=== PATIENT | male | born 1950 | race Caucasian/White ===

== ENCOUNTER → 2016-05-10 | Day surgery (SDC) | payer MEDICARE ==
[~2016-05-10] MED LIST: Buffered Lidocaine 1% SYR 3ML* 3 ML/SYR SYRINGE INTRADERM ONE; Buffered Lidocaine 1% SYR 3ML* 3 ML/SYR SYRINGE ONE; Clindamycin 900 MG IVPREMIX(* 900 MG/50 ML SDV IV ONE; Dexamethasone IV* 4 MG/ML 1 ML (4 MG) ONE; Famotidine IV* 10 MG/ML 2 ML (20 mg) IV ONE; Famotidine IV* 10 MG/ML 2 ML (20 mg) ONE; HYDROmorphone INJ* 1 MG/ML CARPUJECT SYRINGE IV PRN; KETAMINE HCL* 50 MG/ML 10 ML VIAL ONE; Ketorolac INJ* 30 MG/ML 1 ML VIAL ONE; Lidocaine 2% MPF* 2 ML VIAL ONE; Lidocaine 2% PF* 10 ML AMP ONE; Metoclopramide TAB* 10 MG ONE; Metoclopramide TAB* 10 MG PO ONE; Midazolam* 1 MG/ML 5 ML VIAL (5 MG) ONE; Ondansetron INJ* 2 MG/ML VIAL IV PRN; Ondansetron INJ* 2 MG/ML VIAL ONE; Propofol* 10 MG/ML 20 ML BTL IV PUSH ONE; fentaNYL* 50 MCG/ML 2 ML VIAL (100 MCG VIAL) IV PRN; fentaNYL* 50 MCG/ML 2 ML VIAL (100 MCG VIAL) ONE; oxyCODONE/Acetamin 5/325 MG* TAB PO PRN
[2016-05-10 12:37] VITALS: BP 139/101
--- NOTE | 2016-05-10 21:08 | OP ---
DATE OF OPERATION: 05/10/16 [facility] DATE OF : 48 SURGEON: Tj Gale MD CLIENT SERVICES ASSOCIATE: MALGORZATA Bearden ANESTHESIOLOGIST: Ritesh Mejia MD ANESTHESIA: MAC PRE-OP DIAGNOSIS: Recurrent ulceration, left first MTP joint dorsum and large dorsal osteophytes. 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 OPERATIVE PROCEDURE: Cheilectomy, left first MTP joint and debridement. DESCRIPTION OF PROCEDURE: The patient was taken to the operating room where I made a longitudinal incision directly over the dorsum of the first MTP joint through the previous ulcer which now had dried out. Medial flap and lateral flap raised to allow complete visualization of the dorsal aspect of the joint. Large osteophytes were removed completely smoothing down the dorsal phalanx and metatarsal areas. Local cultures were sent. We irrigated this area thoroughly closing the soft tissues with some Biosyn sutures and nylon for the skin. Compression dressing applied. [id number] #: [id number] MTDD
== END | disposition home or self-care (01) ==
LOC: OR 08:43
PROVIDERS: ATTEND Orthopaedic Surgery
DX: M20.22 Hallux rigidus, left foot (principal); M10.9 Gout, unspecified; E11.8 Type 2 diabetes mellitus with unspecified complications; Z79.84 Long term (current) use of oral hypoglycemic drugs
CPT/HCPCS: 87070; 87073; 87205; 88304; 88311; A9270-GY; J1100; J1885; J2001; J2250; J2405; J2704; J3010